=== PATIENT | male | born 1960 | race Caucasian/White ===

== ENCOUNTER 2018-09-30 08:45 | Inpatient (IN) ==
[2018-09-30 10:10] LABS: BASO# 0.01 X1000 (0.0-0.2); BASO% 0.1 % (0.0-0.8); EOS# 0.01 X1000 (0.0-0.7); EOS% 0.1 % (0.0-10.0); HEMATOCRIT 30.2 % (42.0-52.0); HEMOGLOBIN 9.1 g/dL (14.0-18.0); IMM GRAN# 0.02 X1000 (0.0-0.04); IMM GRAN% 0.3 % (0.0-0.5); LYMPH# 1.02 X1000 (1.2-3.4); LYMPH% 13.1 % (20.5-51.1); MCH 19.6 PG (27-31); MCHC 30.1 g/dL (33-37); MCV 64.9 FL (81-99); MONO# 1.01 X1000 (0.11-0.59); MPV 9.9 FL (7.4-10.4); NEUT# 5.71 X1000 (1.4-6.5); NEUT% 73.4 % (42.2-75.2); PLT 318 X1000 (130-400); RBC 4.65 XMIL (4.7-6.1); RDW 19.4 % (11.5-14.5); WBC 7.78 X1000 (4.8-10.8)
[2018-09-30] MEDS ORDERED: ZOFRAN ONE ×2 (10:12→14:46)
[2018-09-30] MEDS ORDERED: ZOFRAN IV ONE (10:14)
[2018-09-30 10:26] LABS: ESTIMATED GFR > 60
[2018-09-30] MEDS ORDERED: NS 1,000 ML ONE (10:27)
[2018-09-30 10:28] LABS: AGAP 18; ALBUMIN 4.2 g/dL (3.5-5.0); ALKALINE PHOSPHATASE 68 U/L (32-122); BUN 40 mg/dL (8-22); CALCIUM 7.8 mg/dL (8.8-10.2); CHLORIDE 75 mmol/L (98-107); COSMO 255; CREATININE 1.1 mg/dL (0.7-1.2); GLUCOSE 150 mg/dL (70-104); GOT 22 U/L (10-34); GPT 16 U/L (10-44); LIPASE 27 U/L (13-60); POTASSIUM 3.7 mmol/L (3.5-5.1); TCO2 27 mmol/L (25-35)
[2018-09-30] MEDS ORDERED: NS 1,000 ML IV ONE (10:29)
[2018-09-30 10:46] LABS: SODIUM 120 mmol/L (136-145)
--- NOTE | 2018-09-30 11:03 | Diag Imaging Result Doc PS360 ---
EXAM: CT ABD/PELVIS W/IV CONT ONLY 09/30/2018 HISTORY: PAIN TECHNIQUE: This exam was performed using automated exposure control, adjustment of mA or kV according to patient size, and/or use of iterative reconstruction technique. COMMENT: There are no previous studies available for comparison. There is atelectasis or fibrosis in the right lower lobe. There is fluid in the subphrenic space on the right. The stomach is not distended. There is a large amount of fluid present in the colon and small bowel. There is a transitional zone in the descending colon just below the splenic flexure. The remainder of the left colon is decompressed. There is a small amount of free fluid in the pelvis. The abdominal aorta is not distended. There are some atherosclerotic calcifications but the mesenteric and renal arteries are patent. There are granulomata in the liver and spleen. There are some very tiny lucencies present in the liver which may represent congenital cysts. The largest of these is located near the falciform ligament in the left hepatic lobe measuring less than 7 mm in diameter. There are no gallstones. The pancreas is unremarkable in appearance. The adrenal glands are not enlarged. There is no evidence of hydronephrosis or stones in the kidneys. There is a cyst in the lower pole of the left kidney measuring less than 17 mm. There is no evidence of significant adenopathy. Pelvis: In addition to the above findings, the urinary bladder is not distended. There is some gas and fecal debris in the rectum. There is no evidence of significant adenopathy. There is a bone island in the right intertrochanteric region. There is no evidence of acute bony abnormality. IMPRESSION: Stenotic lesion in the upper descending colon. No significant mass effect or paracolic inflammatory changes are demonstrated. The possibility of a neoplastic stricture cannot be excluded however. Mild ascites. Right lower lobe atelectasis. Electronically signed by Julian Rodriguez 09/30/2018 11:01 AM
--- NOTE | 2018-09-30 12:14 | Diag Imaging Result Doc PS360 ---
EXAM: CHEST-PORTABLE 09/30/2018 HISTORY: ng tube placement verification TECHNIQUE: AP portable at 1154 COMMENT: The NG tube tip is apparently passes into the area of the hiatus. This may be at the esophagogastric junction. IMPRESSION: NG tube at the esophagogastric junction. Electronically signed by Julian Rodriguez 09/30/2018 12:12 PM
--- NOTE | 2018-09-30 12:30 | PROVIDER DOCUMENTATION ---
This chart was entered by Deborah Hughes Scribe, acting as scribe for Nnamdi Blanco DO. HPI-Abdominal Pain/GI Problem - General Chief Complaint: Abdominal Pain Stated Complaint: VOMITTING Time Seen by Provider: 09/30/18 09:09 Source: patient Allergies/Adverse Reactions: Patient Allergies Allergy/AdvReac Type Severity Reaction Status Date / Time Penicillins Allergy Unknown Verified 09/30/18 09:05 - History of Present Illness-ABD Nature of Presenting Problems: 58 y/o male presents to the ED with complaint of abdominal pain, nausea, vomiting, and diarrhea since Tuesday with increased abdominal swelling as well as not being able to eat or drink today. The patient states he is in fairly good health normally and is on no daily medication. Abdominal Pain Onset Location: reports: generalized abdomen Pain Radiation: reports: no radiation Quality of Pain: reports: fullness Onset/Duration: reports: other (Tuesday) Timing: reports: still present Modifying Factors: worse with: eating Associated Symptoms: reports: diarrhea, nausea, vomiting. denies: fever/chills Similar Symptoms Previously?: No Recently seen or treated by another doctor?: No Review of Systems - Adult - REVIEW OF SYSTEMS - ADULT Constitutional: denies: chills, fever, night sweats Eyes: reports: no symptoms reported Ears, Nose, Mouth & Throat: reports: no symptoms reported Cardiovascular: reports: no symptoms reported Respiratory: reports: no symptoms reported Gastrointestinal: reports: see HPI, abdominal pain, diarrhea, nausea, vomiting Genitourinary: denies: dysuria, discharge, frequency, hematuria, urgency Musculoskeletal: reports: no symptoms reported Integumentary: reports: no symptoms reported Neurological: reports: no symptoms reported Psychiatric: reports: no symptoms reported Endocrine: reports: no symptoms reported Hematologic/Lymphatic: reports: no symptoms reported Allergic/Immunologic: reports: no symptoms reported All Other Systems: Reviewed and Negative Past History - Adult - PAST MEDICAL HISTORY-ADULT Review of Records: reports: Old Records Reviewed, Nursing Assessment Review, Medications Reviewed - IMMUNIZATION STATUS Childhood Immunizations: See Nurse Assessment Flu Vaccine: See Nurse Assessment - SOCIAL HISTORY Smoking: less than 1 pack/day Provider spent 3-5 mins advising pt. on dangers of tobacco.: Discussed manners to quit use, and f/u contacts for add'l counseling. Substance Use: alcohol (3-4 drinks weekly) Physical Exam-General - PHYSICAL EXAM-ADULT Initial Vital Signs Reviewed: Yes - CONSTITUTIONAL General Appearance: alert - EYES Eyes: PERRL/EOMI - HEAD, EARS, NOSE, MOUTH & THROAT HENMT: normocephalic/atraumatic, moist mucous membranes, maxillary tenderness, other (uvula midline, poor dental hygeine/dentation) - NECK Neck: limited range of motion, other (mild degenerative changes C-spine). negative: C-spine tenderness, lymphadenopathy - RESPIRATORY Respiratory: lungs clear, normal breath sounds, other (ribs nontender to compression). negative: rales, rhonchi, wheezing, crepitus - CARDIOVASCULAR Cardiovascular: regular rate, rhythm, no edema, no gallop, no JVD, no murmur - GASTROINTESTINAL (ABDOMEN) Abdominal Exam: abnormal bowel sounds (absent in all four quadrants), distended (fairly hard), guarding (mild), rebound (mild) - MUSCULOSKELETAL Back Exam: other (L4-5 and L5-S1 tenderrness and paraspinous fullness). negative: decreased range of motion Extremity: normal range of motion, no pedal edema, no calf tenderness, other (negative Homans sign). negative: tenderness - SKIN Integumentary: normal color, warm/dry - NEUROLOGIC Neurologic: grossly normal - PSYCHIATRIC Psych/Mental Status: oriented x 3 Progress - PLAN OF CARE/RESULTS Progress/Plan/Lab Results: Vital Signs - 8 hr 09/30/18 09:03 Temperature 97.7 F Pulse Rate 104 H Respiratory Rate 18 Blood Pressure 116/80 O2 Sat by Pulse Oximetry 100 Result Diagrams: 09/30/18 09:30 09/30/18 09:30 - REASSESSMENT Reassessment #1 Status: unchanged (ISCUSSED LABS/CTSCAN WITH PATIENT AND FAMILY) - XRAY 1 XRAY Study: Chest (EXAM: CHEST-PORTABLE 09/30/2018 HISTORY: ng tube placement verification TECHNIQUE: AP portable at 1154 COMMENT: The NG tube tip is apparently passes into the area of the hiatus. This may be at the eso phagogastric junction. IMPRESSION: NG tube at the esophagogastric junction. Electronically signed by Julian Rodriguez 09/30/2018 12:12 PM) - CT/MRI 1 CT Study: Abdomen, Pelvis Impression: Abnormal (EXAM: CT ABD/PELVIS W/IV CONT ONLY 09/30/2018 HISTORY: PAIN TECHNIQUE: This exam was performed using automated exposure control, adjustment of mA or kV according to patient size, and/or use of iterative reconstruction technique. COMMENT: There are no previous studies available for comparison. There is atelectasis or fibrosis in the right lower lobe. There is fluid in the subphrenic space on the right. The stomach is not distended. There is a large amount of fluid present in the colon and small bowel. There is a transitional zone in the descending colon just below the splenic flexure. The remainder of the left colon is decompressed. There is a small amount of free fluid in the pelvis. The abdominal aorta is not distended. There are some atherosclerotic calcifications but the mesenteric and renal arteries are patent. There are granulomata in the liver and spleen. There are some very tiny lucencies present in the liver which may represent congenital cysts. The largest of these is located near the falciform ligament in the left hepatic lobe measuring less than 7 mm in diameter. There are no gallstones. The pancreas is unremarkable in appearance. The adrenal glands are not enlarged. There is no evidence of hydronephrosis or stones in the kidneys. There is a cyst in the lower pole of the left kidney measuring less than 17 mm. There is no evidence of significant adenopathy. Pelvis: In addition to the above findings, the urinary bladder is not distended. There is some gas and fecal debris in the rectum. There is no evidence of significant adenopathy. There is a bone island in the right intertrochanteric region. There is no evidence of acute bony abnormality. IMPRESSION: Stenotic lesion in the upper descending colon. No significant mass effect or paracolic inflammatory changes are demonstrated. The possibility of a neoplastic stricture cannot be excluded however. Mild ascites. Right lower lobe atelectasis. Electronically signed by Julian Rodriguez 09/30/2018 11:01 AM) - CONSULTS/PCP/HOSPITALIST Notification #1 *Consult/PCP/Hospitalist*: Dr. Nuñez, Hospitalist Time Discussed: 12:01 Reason/Comments: cecal mass Consult Disposition: Will see in ED, Admit (Admit to [facility]) Departure - Departure Date of Disposition Decision: 09/30/18 Time of Disposition Decision: 12:20 DIAGNOSIS: Bowel obstruction, Tobacco abuse disorder, Hyponatremia Disposition: ADMITTED INPATIENT 09 Certified Medical Emergency: Emergent Condition: Stable Referrals and Follow-Ups: None,PCP [Primary Care Provider] - Discharge Education: Steps to Quit Smoking - Critical Care Note This patient required my direct & personal management of CC.: No Attestation - Physician/ [place] Attestation Patient care was provided by Advanced Practice Provider:: No The physician spent face to face time with patient:: Yes Advanced Practice Provider documentation review:: Supervising physician onsite and consulted in the evaluation and care of this patient. The physician did have a face to face encounter with the patient. This chart was documented by the indicated scribe, (Deborah Hughes, Emily) and accurately reflects the services I performed and decisions made by me, Nnamdi Blanco DO, as attested by the provider's signature.
[2018-09-30] MEDS ORDERED: NS 1,000 ML IV SCH ×2 (13:00→17:16)
[2018-09-30] MEDS ORDERED: DUONEB (A & A) INH PRN (13:05)
--- NOTE | 2018-09-30 13:31 | HISTORY AND PHYSICAL ---
This is a 58-year-old male who comes in for treatment. He has been complaining of abdominal pain and nausea, vomiting. 58-year-old male no medical problems. I do not think he takes any regular medications. He had no major issues. His workup in the ER showed a colonic mass, but he reports pain in his lower quadrants, abdominal distention for the last week, poor p.o. intake. Pain is described as sharp, 9/10. Also, some intermittent cramping pain, but it has been persistent. He has not really been able to take much by mouth. He does have chronic constipation, but he said he had a normal bowel movement as of this morning. No black bowel movements. No bloody bowel movements. He has had weight loss. Family reports about 5 pounds in the last week. No fevers, chills. No night sweats. No hematemesis. No coffee-grounds emesis. He says he has had some intermittent bleeding in the past, rectal bleeding, but it has been associated with hemorrhoids. Workup in the ER showed a stenotic lesion in the area of his descending colon, upper portion of his descending colon consistent with likely a malignancy. Dr. Hernández was consulted and he was transferred. He will be transferred to [facility] for evaluation for endoscopy, biopsy and possible surgery. He currently has an NG tube in place. The patient is admitted for colon obstruction. PAST MEDICAL HISTORY: Denies. PAST SURGICAL HISTORY: He has had a skin cancer removed from his back. No other major history. SOCIAL HISTORY: He smokes about half a pack a week, but he smoked up to a pack a day. He has smoked since he was 15 so about probably a 40 pack year history of smoking. Alcohol, he drinks about 4 to 5 beers a week. He is disabled. ALLERGIES: To penicillin. MEDICATIONS: Denies. REVIEW OF SYSTEMS: Weight loss as described. Otherwise negative x10 point review of system. No chest pain. No palpitations. No dysuria. No urinary retention. No rashes. No lymphadenopathy. FAMILY HISTORY: Positive for prostate cancer in his father and a sister of metastatic gastric cancer. PHYSICAL EXAMINATION: VITAL SIGNS: Blood pressure is 116/80, heart rate of 104, respiratory rate 18, temperature 97.7 degrees. GENERAL: Well-developed male appears older than stated age. HEENT: Head exam was normocephalic, atraumatic. Eye exam pupils equal, round, reactive to light. Extraocular movements were intact. Sclerae are anicteric. NECK: Supple. CARDIOVASCULAR: Regular rate and rhythm. PULMONARY: Bilateral breath sounds with occasional rhonchi. No wheezing. GI: Was soft, distended. No guarding. No rebound. Bowel sounds I could not appreciate, they were hypoactive. NEURO: Exam was nonfocal. MUSCULOSKELETAL: Exam was 5/5 in all 4 extremities. His right proximal extremity was a bit weak to rotation of his hip. SKIN: Exam was intact. He did have a couple areas of seborrheic keratoses anterior chest. LAB DATA: White count 7, hemoglobin and hematocrit is 9 and 30 with an MCV of 64, platelets of 318,000. Sodium was 120, BUN of 40. ASSESSMENT: This is a 58-year-old male with no major medical history, except his tobacco abuse, who presents with a colonic lesion and obstruction, large bowel obstruction essentially with concern over underlying malignancy. 1. Colon obstruction. He has an NG in place, we are making him n.p.o. We will continue IV fluids but we will have to be careful because of his hyponatremia. So, in any case, he seems to be doing better, but he will need endoscopy. I have discussed with Dr. Arenas and Dr. Arenas has discussed with Dr. Hernández, so we will continue supportive treatment. We will check a CEA level and follow. 2. Hyponatremia possibly related to poor p.o. intake. I am not sure if it is going to be related to alcohol use either but will continue to monitor. Check urine electrolytes and follow closely. 3. Anemia, microcytic, which is most likely iron deficiency, most likely related to the colonic lesion and we will continue to follow closely. We will pursue workup, iron studies and follow. 4. Tobacco abuse. Advised on cessation. He has already cut back significantly. We will work on that while he is here. DISPOSITION: Pending his clinical status at this point, too early to say. We are working on transferring over to [facility] for further management. This is a service admission. Dr hernández has evaluated the patient and will proceed with resection and colostomy today; pt also likely has chronic alcohol abuse and will need to watch closely for withdrawal, beer potomonia may be the source of hyponatremia. cc: Uzair Nuñez MD [facility]
[2018-09-30] MEDS ORDERED: ALBUMIN 25% ONE (13:43)
[2018-09-30] MEDS ORDERED: XYLOCAINE-MPF 2% ONE (13:58)
[2018-09-30] MEDS ORDERED: NORCURON ONE (13:58)
[2018-09-30] MEDS ORDERED: QUELICIN (DOSE) ONE (13:58)
[2018-09-30] MEDS ORDERED: DIPRIVAN 1% ONE (13:58)
[2018-09-30] MEDS ORDERED: LEVAQUIN 500 MG/D5W 500 MG/100 ML IVPB ONE (14:13)
[2018-09-30] MEDS ORDERED: OFIRMEV 1000 MG/ISOTONIC SOLN 1,000 MG/100 ML BOTTLE ONE (14:27)
[2018-09-30] MEDS ORDERED: NEO-SYNEPHRINE ONE (15:00)
[2018-09-30] MEDS ORDERED: FLAGYL 500 MG/NS 500 MG/100 ML IVPB IV ONE (15:00)
[2018-09-30] MEDS ORDERED: ROBINUL ONE (15:08)
[2018-09-30] MEDS ORDERED: NEOSTIGMINE ONE (15:09)
[2018-09-30 15:11] LABS: URINE SOURCE CATH
[2018-09-30 15:19] LABS: BILIRUBIN URINE NEGATIVE (NEGATIVE); BLOOD URINE NEGATIVE (NEGATIVE); COLOR YELLOW; GLUCOSE URINE NEGATIVE (NEGATIVE); KETONE URINE NEGATIVE (NEGATIVE); LEUKOCYTES URINE NEGATIVE (NEGATIVE); NITRITE URINE NEGATIVE (NEGATIVE); PROTEIN URINE TRACE mg/dL (NEGATIVE); SP GRAVITY URINE > 1.050; TURBIDITY URINE CLEAR (CLEAR); UROBILINOGEN URINE NORMAL (NORMAL)
[2018-09-30 15:20] LABS: UR EPITHELIAL CELLS <10 /HPF (<10); URINE BACTERIA NEGATIVE /HPF; URINE RBC <10 /HPF (<10); URINE WBC <10 /HPF (<10)
[2018-09-30] MEDS: DILAUDID ONE ×3 (16:15→19:41)
[2018-09-30] MEDS ORDERED: DILAUDID PCA VIAL IV PRN (16:30)
[2018-09-30] MEDS ORDERED: ZOFRAN IV PRN ×2 (16:30→17:16)
[2018-09-30] MEDS ORDERED: LR 1,000 ML IV SCH (16:30)
[2018-09-30] MEDS ORDERED: NARCAN IV PRN (16:30)
[2018-09-30] MEDS ORDERED: NARCAN 0.4 MG in LR 1,000 ML IV PRN (16:30)
[2018-09-30] MEDS: NS 1,000 ML ONE ×2 (16:32→19:41)
--- NOTE | 2018-09-30 16:36 | GENERAL SURGERY CONSULTATION ---
DATE: 09/30/2018 CHIEF COMPLAINT: Is colonic obstruction. HISTORY: This is a 58-year-old white male who has had crampy abdominal pain, nausea, vomiting over the past 4 or 5 days. He denies any other medical illnesses. He does not have a regular physician. He takes no scheduled medications. He has had a change in his bowel habits. He does smoke a 3rd of a pack a day. ALLERGIES: He has an allergy to penicillin. He has had a skin cancer removed from his back. SOCIAL HISTORY: Lives with his mother. He does smoke a 3rd of a pack a day. He does drink alcohol regularly. His sister consider an alcoholic. REVIEW OF SYSTEMS: As noted above. PHYSICAL EXAMINATION: Vital Signs: He is afebrile. Heart rate 104, blood pressure 116/80, respiratory rate is 18. He has no cervical adenopathy. Lungs: Sound clear. Heart: Regular rate and rhythm. Abdomen: Not particularly distended, is nontender. Bowel sounds are hypoactive. He does have pedal pulses, posterior tibial pulses bilaterally. There is no peripheral edema. He is awake, alert, and oriented. DATA: CT scan is reviewed. He has a strictured area in the left colon with obstruction consistent with cancer. Due to his colonic obstruction, will take him to the operating room for resection and an end colostomy. I have discussed this with him. He understands and wants to proceed. cc: Evaristo Hare MD
[2018-09-30] MEDS ORDERED: ATIVAN IV PRN (17:16)
[2018-09-30] MEDS ORDERED: NICODERM PATCH TD PRN (17:16)
[2018-09-30 18:46] LABS: AGAP 12; BUN 37 mg/dL (8-22); CHLORIDE 87 mmol/L (98-107); COSMO 256; CREATININE 0.9 mg/dL (0.7-1.2); ESTIMATED GFR > 60; GLUCOSE 132 mg/dL (70-104); POTASSIUM 3.3 mmol/L (3.5-5.1); SODIUM 122 mmol/L (136-145); TCO2 23 mmol/L (25-35)
--- NOTE | 2018-09-30 18:55 | OPERATIVE NOTE ---
PROCEDURE DATE: 09/30/2018 OPERATION: 1. Resection of a portion of the descending colon at the splenic flexure. 2. Construction of end-colostomy in Kala's pouch. SURGEON: Evaristo Hare MD. ANIMAL CARE GIVER: Nishant. PREOPERATIVE DIAGNOSIS: Colonic obstruction. POSTOPERATIVE DIAGNOSIS: Colonic obstruction at the proximal descending colon at the splenic flexure. DESCRIPTION OF PROCEDURE: Satisfactory general endotracheal anesthesia was achieved. The abdomen was prepped and draped in a sterile fashion. A midline incision was made and carried our incision through the subcutaneous tissue through the midline fascia, entering the abdominal cavity. Upon entering the abdominal cavity, dilated small bowel was noted. Dilated colon was noted. No masses palpated at the splenic flexure. We incised the white line of Toldt starting at the sigmoid and going cephalad to the splenic flexure. After reaching the splenic flexure with the electrocautery, we then turned our attention to the greater curve and into the lesser sac with the LigaSure. We then took the greater omentum off the colon toward the splenic flexure. We mobilized the splenic flexure and brought it out of the retroperitoneum. We then chose a spot in the distal transverse colon and used a LOKESH-80 to staple and divide the distal transverse colon. We then divided the mesentery with the LigaSure. We divided the distal descending colon also with a LOKESH-80 blue cartridge and again divided the mesentery with the LigaSure. We handed off the specimen. The distal colon was marked by using 2-0 Prolene at the end of the staple line for future identification. We looked at the spleen and it was hemostatic. The retroperitoneum was hemostatic. We then chose a place in the left upper quadrant to bring the stoma out. We palpated the rest of the colon. Did not palpate any other masses. No masses were palpated within the liver. We used a Emmy on the fascia and then marked the skin in the left upper quadrant. We used a Emmy to grab the skin and made a small hole in the skin removing it. We then dissected to the anterior rectus sheath and divided it longitudinally and transversely. We spread the muscle and opened the posterior rectus sheath as well longitudinally and transversely. We then introduced a small wound protector, delivered the colon through the small wound protector without difficulty. We then cut the small wound protector, and removed it. We then sutured the colon to the fascia with 3-0 Polysorb simple stitches. I then proceeded to close the peritoneum with a running 2-0 chromic. We closed the fascia with a running #2 Prolene. Irrigated the subcutaneous tissue and closed the skin with loan. We covered the midline wound. We then cleaned off the skin, used benzoin followed by a flange that would go around the stoma, while the midline wound was covered, we excised the staple line of the stoma and matured the stoma with 3-0 Polysorb stitches, everting it as a co-colostomy. The bag was then applied over the stoma. Sterile dressings were applied to midline wound. He tolerated procedure satisfactory. Was sent to recovery room in satisfactory condition. cc: Evaristo Hare MD
--- NOTE | 2018-09-30 20:39 | PROGRESS NOTE ---
DATE: 09/30/2018 Dr. Nuñez actually saw him today, admitted in transfer here in the hospital. A 58-year-old male coming in for treatment complaint of abdominal pain, nausea and vomiting. Workup in the ER showed colonic mass, pain in his left lower quadrant and having chronic constipation. Was sent over here, by report apparently had a colon mass and was resected per Dr. Hare resection of portion of descending colon and splenic flexure, construction of end colostomy and Kala pouch. He is awake and alert and comfortable at this point. I have reviewed his lab and orders. I do not see any change. I will be following him along. cc: Maksim Parham MD
[2018-09-30] MEDS: PROTONIX IV SCH (21:14)
[2018-09-30] MEDS: POTASSIUM CHLORIDE 20 MEQ, MAGNESIUM SULFATE 2 GM, THIAMINE 100 MG, FOLIC ACID 1 MG, M.... IV SCH ×6 (21:14)
[2018-09-30] MEDS: LOVENOX SUBQ SCH (21:14)
[2018-09-30 23:57] LABS: AGAP 15; BUN 37 mg/dL (8-22); CHLORIDE 88 mmol/L (98-107); COSMO 264; CREATININE 1.1 mg/dL (0.7-1.2); ESTIMATED GFR > 60; GLUCOSE 131 mg/dL (70-104); POTASSIUM 3.8 mmol/L (3.5-5.1); SODIUM 126 mmol/L (136-145); TCO2 23 mmol/L (25-35)
[2018-09-30 23:58] LABS: CALCIUM 5.9 mg/dL (8.8-10.2)
[2018-10-01] MEDS: PERIDEX MT SCH ×3 (00:07→21:42)
[2018-10-01] MEDS ORDERED: CALCIUM GLUCONATE 2 GM in NS 100 ML IV ONE (01:26)
[2018-10-01 02:20] LABS: AGAP 12; BUN 38 mg/dL (8-22); CHLORIDE 87 mmol/L (98-107); COSMO 257; CREATININE 1.1 mg/dL (0.7-1.2); ESTIMATED GFR > 60; GLUCOSE 161 mg/dL (70-104); POTASSIUM 3.7 mmol/L (3.5-5.1); SODIUM 121 mmol/L (136-145); TCO2 22 mmol/L (25-35)
[2018-10-01 02:25] LABS: CALCIUM 6.4 mg/dL (8.8-10.2)
--- NOTE | 2018-10-01 06:25 | PROGRESS NOTE ---
DATE: 10/01/2018 SUBJECTIVE: Mr. Yuan did not sleep much last night. The lights were on. It is about 5:00 this morning. His family was sleeping in the room. He was thankful to have a little ice. He is not in any pain, he is not sleepy at this point. He does have some abdominal pain, but it seems to be fairly well controlled. OBJECTIVE: Vital signs: Temp 97.8 degrees, pulse 100, respirations 20, blood pressure 109/70. HEENT: Pupils are equal. Neck: No distended neck veins. Lungs: Clear in all lung schaefer. Cardiovascular: Regular rhythm and rate without murmur or S3. Abdomen: Soft. Skin: Warm and dry. LABORATORY DATA: White blood cell count 7780, hematocrit 30, hemoglobin 9.1, platelet count 318,000. Sodium 121, potassium 3.7, chloride 97, BUN 38, and creatinine 1.1. His calcium was 6.4 with an albumin of 4.2, so I am going to give him some calcium. We will check his magnesium as well later this afternoon. ASSESSMENT AND PLAN: 1. Hyponatremia. I am going to supplement with some IV potassium and give him a little bit of calcium as well. We will check his electrolytes again this afternoon. He is on normal saline. I am going to change him to normal saline with some potassium. 2. Status post postoperative day 1 of surgery of colon mass, I think was at the splenic flexure with an end colostomy and Kala's pouch. 3. Anemia, microcytic, iron deficient, acute blood loss anemia. We will watch his blood counts, and they look good. Hematocrit was 30 yesterday, and hemoglobin was 9.1, and we will check again today. I do not see any other changes at this point. cc: Maksim Parham MD MTDD
[2018-10-01] MEDS: POTASSIUM CHLORIDE 20 MEQ/SWI 20 MEQ/100 ML IVPB IV SCH ×3 (06:58→09:59)
[2018-10-01 07:00] LABS: BASO# 0.02 X1000 (0.0-0.2); BASO% 0.2 % (0.0-0.8); EOS# 0.01 X1000 (0.0-0.7); EOS% 0.1 % (0.0-10.0); HEMATOCRIT 25.6 % (42.0-52.0); HEMOGLOBIN 7.4 g/dL (14.0-18.0); IMM GRAN# 0.05 X1000 (0.0-0.04); IMM GRAN% 0.4 % (0.0-0.5); LYMPH# 0.81 X1000 (1.2-3.4); LYMPH% 6.4 % (20.5-51.1); MCH 19.4 PG (27-31); MCHC 28.9 g/dL (33-37); MONO# 1.07 X1000 (0.11-0.59); MONO% 8.5 % (1.7-9.3); MPV 9.6 FL (7.4-10.4); NEUT% 84.4 % (42.2-75.2); PLT 236 X1000 (130-400); RBC 3.82 XMIL (4.7-6.1); RDW 19.3 % (11.5-14.5); WBC 12.66 X1000 (4.8-10.8)
[2018-10-01 07:24] LABS: ESTIMATED GFR > 60; IRON SATURATION 6 %; TIBC 271 ug/dL
[2018-10-01 07:40] LABS: FERRITIN 23 ng/mL (30-400)
[2018-10-01 07:53] LABS: SODIUM 120 mmol/L (136-145)
[2018-10-01 07:54] LABS: AGAP 12; ALBUMIN 2.9 g/dL (3.5-5.0); ALKALINE PHOSPHATASE 45 U/L (32-122); BUN 40 mg/dL (8-22); CALCIUM 7.1 mg/dL (8.8-10.2); CHLORIDE 87 mmol/L (98-107); COSMO 256; CREATININE 1.1 mg/dL (0.7-1.2); GLUCOSE 170 mg/dL (70-104); GOT 14 U/L (10-34); GPT 10 U/L (10-44); POTASSIUM 4.2 mmol/L (3.5-5.1); TCO2 21 mmol/L (25-35); TOTAL BILIRUBIN 0.37 mg/dL (0.20-1.00); TOTAL IRON 17 ug/dL (53-167); TOTAL PROTEIN 5.9 g/dL (6.3-8.3); UNBOUND IRON 254 ug/dL (112-346)
[2018-10-01] MEDS ORDERED: NS 1,000 ML IV SCH (08:44)
--- NOTE | 2018-10-01 09:35 | GENERAL SURGERY PROGRESS NOTE ---
DATE: 10/01/2018 Mr. Yuan is postoperative day 1 after a colon resection with end colostomy. He feels better today. He is afebrile, heart rate 94, blood pressure 133/76. He has had quite a bit of output in his colostomy due to the previous colonic obstruction. His urine output has been marginal. DIAGNOSTIC STUDIES: White count is 12,700, hemoglobin 7.4, hematocrit 25.6. Sodium 121, potassium 3.7, chloride 87, carbon dioxide 22, BUN 38, creatinine 1.1. PLAN: The plan today is to increase his IV fluids. He will need some potassium supplement. We will keep his NG tube today, but hopefully get it out by tomorrow. cc: Evaristo Hare MD
[2018-10-01] MEDS ORDERED: CALCIUM GLUCONATE IV PUSH ONE (10:03)
[2018-10-01] MEDS: NS + KCL 40 MEQ 1,000 ML IV SCH ×2 (13:45)
[2018-10-01] MEDS: CALCIUM GLUCONATE 2 GM in NS 100 ML IV ONE ×2 (13:45)
[2018-10-01 16:51] LABS: AGAP 10; BUN 33 mg/dL (8-22); CALCIUM 7.5 mg/dL (8.8-10.2); CHLORIDE 88 mmol/L (98-107); COSMO 246; CREATININE 1.2 mg/dL (0.7-1.2); ESTIMATED GFR > 60; GLUCOSE 111 mg/dL (70-104); POTASSIUM 4.5 mmol/L (3.5-5.1); TCO2 20 mmol/L (25-35)
[2018-10-01 16:57] LABS: SODIUM 119 mmol/L (136-145)
[2018-10-01 18:54] LABS: UR CREAT RANDOM 77.3 mg/dL (14-26); UR SODIUM < 10 mmoll
[2018-10-01] MEDS: LOVENOX SUBQ SCH (21:42)
[2018-10-01] MEDS: POTASSIUM CHLORIDE 20 MEQ, MAGNESIUM SULFATE 2 GM, THIAMINE 100 MG, FOLIC ACID 1 MG, M.... IV SCH ×6 (21:42)
[2018-10-01] MEDS: PROTONIX IV SCH (21:42)
[2018-10-01] MEDS: SODIUM CHLORIDE 0.9% INJ SCH (21:42)
[2018-10-02] MEDS: NS + KCL 40 MEQ 1,000 ML IV SCH (05:40)
[2018-10-02 07:36] LABS: ESTIMATED GFR > 60
[2018-10-02 07:42] LABS: AGAP 6; BUN 22 mg/dL (8-22); CALCIUM 7.1 mg/dL (8.8-10.2); CHLORIDE 93 mmol/L (98-107); COSMO 247; CREATININE 0.7 mg/dL (0.7-1.2); GLUCOSE 116 mg/dL (70-104); SODIUM 121 mmol/L (136-145); TCO2 21 mmol/L (25-35)
[2018-10-02 08:30] LABS: EOS# 0.01 X1000 (0.0-0.7); EOS% 0.1 % (0.0-10.0); HEMATOCRIT 19.4 % (42.0-52.0); HEMOGLOBIN 5.6 g/dL (14.0-18.0); IMM GRAN# 0.03 X1000 (0.0-0.04); IMM GRAN% 0.4 % (0.0-0.5); LYMPH# 0.84 X1000 (1.2-3.4); LYMPH% 12.1 % (20.5-51.1); MCH 19.3 PG (27-31); MCHC 28.9 g/dL (33-37); MCV 66.9 FL (81-99); MONO# 0.86 X1000 (0.11-0.59); MONO% 12.4 % (1.7-9.3); MPV 9.6 FL (7.4-10.4); NEUT# 5.22 X1000 (1.4-6.5); PLT 198 X1000 (130-400); WBC 6.96 X1000 (4.8-10.8)
[2018-10-02] MEDS ORDERED: NS 500 ML ONE (12:09)
[2018-10-02] MEDS: PERIDEX MT SCH ×2 (12:17→19:49)
--- NOTE | 2018-10-02 13:11 | PROGRESS NOTE ---
DATE: 10/02/2018 SUBJECTIVE: Mr. Yuan is feeling pretty good. He had a better night. Noticed his hemoglobin is under 5.6, hematocrit 19. He is pretty pale. He is breathing comfortably. OBJECTIVE: Vitals: Temperature 98.7 degrees, pulse 80, respirations 18, blood pressure 114/61. HEENT: Pupils are equal and round. Lungs: Clear in all lung schaefer. Cardiovascular: Regular rhythm and rate without murmur or S3. Abdomen: Soft. Skin: Warm and dry. LABORATORY STUDIES: Urine output is 2700 mL. ASSESSMENT AND PLAN: 1. Hyponatremia. Continue to give him fluids. It did come up a little bit from yesterday from 119. We will give him 2 units of blood as well. He appears probably third spacing, appears to be hypovolemic, hyponatremia, so continue present fluids. 2. Acute blood loss anemia and with hydration giving more volume or diluting his red blood cell count, so we will give him 2 units of packed red blood cells today. 3. Day 2 of status post surgery for removal of colon mass at the splenic flexure and end- colostomy with Kala's pouch. 4. Nutrition. Of course will advance his nutrition as he is able and I think that continue his present fluids and I think he would probably benefit from some Clinimix as well so I will put him on Clinimix at 70 mL an hour. cc: Maksim Parham MD
[2018-10-02] MEDS: CLINIMIX E 4.25%-5% SOLUTION 1,000 ML IV SCH (14:27)
--- NOTE | 2018-10-02 16:58 | GENERAL SURGERY PROGRESS NOTE ---
DATE: 10/02/2018 SUBJECTIVE: Mr. Yuan is doing generally well. He is putting out quite a bit out of his colostomy. He is afebrile. Hemodynamics are good. His hemoglobin has drifted down to 5.6, with hematocrit 19 today, so 2 units of blood have being given. His BUN is down to 22, creatinine down to 0.7, so he is better hydrated. He says he feels better as well. PLAN: The plan will be to start him on clear liquids. We will recheck his labs tomorrow. We will get his Bundy out today. Sincerely yours, cc: Evaristo Hare MD
[2018-10-02] MEDS: POTASSIUM CHLORIDE 20 MEQ, MAGNESIUM SULFATE 2 GM, THIAMINE 100 MG, FOLIC ACID 1 MG, M.... IV SCH ×6 (19:48)
[2018-10-02] MEDS: SODIUM CHLORIDE 0.9% INJ SCH (19:49)
[2018-10-02] MEDS: PROTONIX IV SCH (19:49)
[2018-10-02] MEDS: LOVENOX SUBQ SCH (19:49)
[2018-10-03] MEDS: PROTONIX IV SCH ×3 (00:04→20:05)
[2018-10-03] MEDS: LOVENOX SUBQ SCH ×3 (00:04→20:05)
[2018-10-03] MEDS: PERIDEX MT SCH ×4 (00:04→20:05)
[2018-10-03] MEDS: NS + KCL 40 MEQ 1,000 ML IV SCH ×4 (00:04→09:50)
[2018-10-03] MEDS: CLINIMIX E 4.25%-5% SOLUTION 1,000 ML IV SCH (06:12)
[2018-10-03 07:21] LABS: BASO# 0.01 X1000 (0.0-0.2); BASO% 0.1 % (0.0-0.8); EOS# 0.04 X1000 (0.0-0.7); EOS% 0.5 % (0.0-10.0); HEMATOCRIT 28.8 % (42.0-52.0); HEMOGLOBIN 9.1 g/dL (14.0-18.0); IMM GRAN# 0.05 X1000 (0.0-0.04); IMM GRAN% 0.7 % (0.0-0.5); LYMPH# 0.95 X1000 (1.2-3.4); LYMPH% 12.5 % (20.5-51.1); MCH 22.9 PG (27-31); MCHC 31.6 g/dL (33-37); MCV 72.5 FL (81-99); MONO% 7.9 % (1.7-9.3); MPV 9.7 FL (7.4-10.4); NEUT# 5.96 X1000 (1.4-6.5); NEUT% 78.3 % (42.2-75.2); PLT 160 X1000 (130-400); RBC 3.97 XMIL (4.7-6.1); RDW 21.7 % (11.5-14.5); WBC 7.61 X1000 (4.8-10.8)
[2018-10-03 07:45] LABS: AGAP 8; ALBUMIN 2.7 g/dL (3.5-5.0); ALKALINE PHOSPHATASE 42 U/L (32-122); BUN 10 mg/dL (8-22); CALCIUM 7.5 mg/dL (8.8-10.2); CHLORIDE 91 mmol/L (98-107); COSMO 242; CREATININE 0.4 mg/dL (0.7-1.2); ESTIMATED GFR > 60; GLUCOSE 109 mg/dL (70-104); GOT 17 U/L (10-34); GPT 10 U/L (10-44); MAGNESIUM 2.3 mg/dL (1.5-2.7); POTASSIUM 3.6 mmol/L (3.5-5.1); TCO2 21 mmol/L (25-35); TOTAL BILIRUBIN 0.59 mg/dL (0.20-1.00); TOTAL PROTEIN 5.3 g/dL (6.3-8.3)
[2018-10-03 08:24] LABS: SODIUM 121 mmol/L (136-145)
--- NOTE | 2018-10-03 11:00 | PROGRESS NOTE ---
DATE: 10/03/2018 SUBJECTIVE: As per the patient, he is feeling better. His daughter is at the bedside. He received 2 units of blood yesterday, and the hemoglobin improved from 5.6 to 9.1 today. His MCV is low. It has been in the 60s mostly. Also, he has been hyponatremic. He came in with a little bit of acute kidney injury, but now is normal. When I asked the patient about his drinking history, he told me that he probably drinks 1 beer per day and/or maybe 4 to 5 per week and, as per the patient, he smokes half a pack per week of cigarettes as well. Then, the daughter stepped out of the room and talked to me again. She told me that he drinks more than that on a daily basis and also he was drinking vodka before coming to the hospital. She said that he is not smoking half a pack per week. He smokes way more than that. On the other hand, his iron level is low, as well as the ferritin level. I will give him 2 doses of Venofer IV. When he came in he was hyponatremic and probably this is chronic. He is tolerating liquid diet, so I will stop the Clinimix. I will ask the polygraph operator to evaluate this patient. I will decrease also the rate of the normal saline from 100 to 35 mL/hour. He looks euvolemic today. OBJECTIVE: Vital Signs: Temperature 98.4 degrees, pulse 83, respiratory rate 20, blood pressure 128/64, oxygen saturation 97% on 3 L of nasal cannula. HEENT: Head normocephalic, no trauma. PERRLA. Neck: Supple. No JVD. Central trachea. Chest: Clear to auscultation. No wheezing. No rales. Abdomen: Soft. Generalized tenderness to palpation mostly at the level of the left side of the abdomen and around the wound. Decreased bowel sounds. He does have a colostomy bag working on the left side. Extremities: No edema, no clubbing, no cyanosis. Neurological examination: The patient is alert and oriented x3. No focal deficits. LABORATORY: WBC 7.6, hemoglobin 9.1, hematocrit 28.8, platelet 160. Sodium 121, potassium 3.6, chloride 91, bicarbonate 21. BUN 10, creatinine 0.4, glucose 109, calcium 7.5, magnesium 2.3, albumin 2.7. ASSESSMENT AND PLAN: 1. Hyponatremia. This patient came in with hyponatremia and probably this is chronic. As per the daughter, this patient is an alcoholic and he drinks beer on a daily basis. He looks euvolemic for me, so I will stop the Clinimix and I will decrease the rate of the normal saline since this patient is already tolerating liquid diet. I will continue to monitor. He is completely alert and oriented times three. 2. Acute blood loss anemia in a patient with low MCV and iron deficiency anemia. He has been transfused. He receive 2 units of packed red blood cells yesterday, but I will give him also Venofer due to his iron deficiency anemia. 3. Alcohol abuse. As per the daughter, this patient drinks on a daily basis mostly beer. We do not know exactly the amount of alcohol that he drinks because as per the patient he only drinks 4 to 5 beers per week. Also as per the daughter he has been recently drinking vodka. 4. Tobacco abuse. This patient has been highly advised against tobacco use. I will continue with daily cessation education. 5. Status post resection of a portion of the descending colon at the splenic flexure with construction of end colostomy in Kala pouch postoperative day number three. He seems to be doing better. He is tolerating oral. Computed tomography scan showed a stenotic lesion in the upper descending colon with no significant mass or paracolic inflammatory changes. There is a possibility of neoplastic stricture. Pathology report is pending and the CEA level is 23, which is slightly high. 6. Nutritional status: This patient is tolerating liquid diet. I will ask the polygraph operator to evaluate this patient since his body mass index is 17.6, so he has some protein calorie malnutrition. 7. Protein calorie malnutrition, probably mild, as above. cc: Jerman Villatoro MD
[2018-10-03] MEDS: THIAMINE 100 MG in NS 50 ML IV SCH (11:12)
[2018-10-03] MEDS: VENOFER IV SCH (12:22)
[2018-10-03] MEDS: NS IV SCH (12:22)
[2018-10-03 17:26] LABS: AGAP 11; BUN 8 mg/dL (8-22); CALCIUM 7.8 mg/dL (8.8-10.2); CHLORIDE 95 mmol/L (98-107); COSMO 250; CREATININE 0.5 mg/dL (0.7-1.2); ESTIMATED GFR > 60; GLUCOSE 131 mg/dL (70-104); POTASSIUM 3.8 mmol/L (3.5-5.1); SODIUM 124 mmol/L (136-145); TCO2 18 mmol/L (25-35)
[2018-10-03] MEDS: POTASSIUM CHLORIDE 20 MEQ, MAGNESIUM SULFATE 2 GM, THIAMINE 100 MG, FOLIC ACID 1 MG, M.... IV SCH ×6 (19:52)
[2018-10-03] MEDS: SODIUM CHLORIDE 0.9% INJ SCH (19:57)
[2018-10-04] MEDS ORDERED: NS + KCL 40 MEQ 1,000 ML IV SCH (03:00)
--- NOTE | 2018-10-04 06:54 | GENERAL SURGERY PROGRESS NOTE ---
DATE: 10/04/2018 SUBJECTIVE: He is 4 days after a left colectomy and end colostomy for obstructed colon. Mr. simeon has been tolerating liquids. He is putting liquid out his stoma, some air. OBJECTIVE: His abdomen this morning is somewhat distended, but he denies nausea. Vital signs: He is afebrile, blood pressure is 125/77, heart rate 93. ASSESSMENT AND PLAN: The plan today is to advance his diet. He needs to get out of bed. We will stop his VAMPER. His pathology is pending. cc: Evaristo Hare MD
[2018-10-04 06:55] LABS: BASO# 0.01 X1000 (0.0-0.2); BASO% 0.1 % (0.0-0.8); EOS# 0.02 X1000 (0.0-0.7); EOS% 0.2 % (0.0-10.0); HEMATOCRIT 28.5 % (42.0-52.0); IMM GRAN# 0.09 X1000 (0.0-0.04); LYMPH# 0.78 X1000 (1.2-3.4); LYMPH% 8.8 % (20.5-51.1); MCH 22.7 PG (27-31); MCHC 31.6 g/dL (33-37); MONO# 0.89 X1000 (0.11-0.59); MPV 9.6 FL (7.4-10.4); NEUT# 7.08 X1000 (1.4-6.5); NEUT% 79.9 % (42.2-75.2); PLT 178 X1000 (130-400); RBC 3.96 XMIL (4.7-6.1); RDW 22.4 % (11.5-14.5); WBC 8.87 X1000 (4.8-10.8)
[2018-10-04 09:37] LABS: BUN 6 mg/dL (8-22); TCO2 18 mmol/L (25-35)
[2018-10-04 09:55] LABS: CHLORIDE 97 mmol/L (98-107); COSMO 252; CREATININE 0.5 mg/dL (0.7-1.2); ESTIMATED GFR > 60; GLUCOSE 146 mg/dL (70-104); POTASSIUM 3.8 mmol/L (3.5-5.1); SODIUM 125 mmol/L (136-145)
[2018-10-04] MEDS: NORCO-7.5 PO PRN ×2 (09:59→19:59)
[2018-10-04] MEDS: PERIDEX MT SCH ×2 (10:00→21:44)
[2018-10-04 10:01] LABS: AGAP 10
[2018-10-04] MEDS: THIAMINE 100 MG in NS 50 ML IV SCH (10:31)
[2018-10-04] MEDS: NS IV SCH (11:25)
[2018-10-04] MEDS: VENOFER IV SCH (11:25)
[2018-10-04] MEDS: MORPHINE IV PRN ×2 (12:52→21:44)
--- NOTE | 2018-10-04 15:18 | PROGRESS NOTE ---
DATE: 10/04/2018 SUBJECTIVE: The patient seems to be doing better. He is still complaining of abdominal pain, but has been controlled with pain medication. He has been walking a little bit more, tolerating p.o. Hyponatremia seems to be better since I stopped the IV fluids. I will completely stop the normal saline at this time to see how he does. OBJECTIVE: Vital Signs: Temperature 98, pulse 84, respiratory rate 20, blood pressure 127/74. Oxygen saturation 95% on room air. HEENT: Head normocephalic, no trauma. PERRLA. Neck: Supple. No JVD. No masses. Central trachea. Chest: Clear to auscultation. No wheezing. No rales. Abdomen: Soft. Generalized tenderness to palpation mostly at the level of the left side of the abdomen and around the perioperative area. Decreased bowel sounds are present. He does have a colostomy bag on the left side with some liquid stools. Extremities: No edema. No clubbing, no cyanosis. Neurologic: The patient is alert and oriented x 3. No focal deficits. LABORATORY: WBC 8.8, hemoglobin 9, hematocrit 28.5, platelets 178,000. Sodium 125, potassium 3.8, chloride 97, bicarbonate 18, BUN 6, creatinine 0.5, glucose 146, calcium 8. ASSESSMENT AND PLAN: 1. Status post resection of a portion of the ascending colon at the splenic flexure with construction of end colostomy and Kala pouch, postoperative day #4. He seems to be doing better. He is tolerating p.o. CT scan showed a stenotic lesion in the upper descending colon with no significant mass or paracolic inflammatory changes. There is a possibility of neoplastic stricture. Pathology report is pending and the CEA level is 23, which is slightly elevated. Surgery Department on board. We will continue to monitor. 2. Hyponatremia. This patient came in with hyponatremia, which is probably chronic, no mental status changes. Also, this patient is a heavy drinker. He looks euvolemic at this point, I will stop all the IV fluids. Probably there is a component of SIADH on this patient. 3. Acute blood loss anemia, status post 2 PRBC's. We will monitor. Hemoglobin and hematocrit have been stable. 4. Alcohol abuse. This patient has been highly advised against alcohol use. I will continue with daily cessation education. 5. Tobacco abuse. This patient has been highly advised against tobacco use as well. I will continue with daily cessation education. 6. Nutritional status. Continue with his diet. 7. Protein calorie malnutrition, continue with his diet. The diversified crops i farmworker has recommended to use Ensure with meals and his diet. cc: Jerman Villatoro MD
[2018-10-04] MEDS: SODIUM CHLORIDE 0.9% INJ SCH (21:44)
[2018-10-04] MEDS: PROTONIX IV SCH (21:44)
[2018-10-04] MEDS: LOVENOX SUBQ SCH (21:44)
[2018-10-04] MEDS: POTASSIUM CHLORIDE 20 MEQ, MAGNESIUM SULFATE 2 GM, THIAMINE 100 MG, FOLIC ACID 1 MG, M.... IV SCH ×6 (21:44)
[2018-10-05] MEDS: NORCO-7.5 PO PRN ×3 (06:28→22:04)
[2018-10-05 07:19] LABS: BASO# 0.02 X1000 (0.0-0.2); BASO% 0.2 % (0.0-0.8); EOS# 0.02 X1000 (0.0-0.7); EOS% 0.2 % (0.0-10.0); HEMATOCRIT 28.3 % (42.0-52.0); IMM GRAN# 0.11 X1000 (0.0-0.04); LYMPH# 0.86 X1000 (1.2-3.4); LYMPH% 7.7 % (20.5-51.1); MCH 23.1 PG (27-31); MCHC 31.8 g/dL (33-37); MCV 72.8 FL (81-99); MONO% 9.8 % (1.7-9.3); MPV 9.3 FL (7.4-10.4); NEUT# 9.12 X1000 (1.4-6.5); NEUT% 81.1 % (42.2-75.2); PLT 164 X1000 (130-400); RBC 3.89 XMIL (4.7-6.1); RDW 23.7 % (11.5-14.5); WBC 11.23 X1000 (4.8-10.8)
[2018-10-05 07:41] LABS: AGAP 10; BUN 7 mg/dL (8-22); CALCIUM 7.5 mg/dL (8.8-10.2); CHLORIDE 96 mmol/L (98-107); COSMO 249; CREATININE 0.4 mg/dL (0.7-1.2); ESTIMATED GFR > 60; GLUCOSE 128 mg/dL (70-104); POTASSIUM 3.6 mmol/L (3.5-5.1); SODIUM 124 mmol/L (136-145); TCO2 18 mmol/L (25-35)
[2018-10-05] MEDS: PERIDEX MT SCH ×2 (09:44→22:03)
[2018-10-05] MEDS: VITAMIN B-1 PO SCH (09:44)
--- NOTE | 2018-10-05 10:52 | PROGRESS NOTE ---
DATE: 10/05/2018 SUBJECTIVE: As per the patient, he is feeling better but he still complaining of abdominal pain and asking for pain medication. As per the patient, he has been walking a little bit more. He has been tolerating p.o. He is still hyponatremic, but I believe this is chronic. OBJECTIVE: Vital Signs: Temperature 98.8 degrees, pulse 90, respiratory rate 18, blood pressure 105/64, and oxygen saturation 94% on room air. HEENT: Head normocephalic. No trauma. PERRLA. Neck: Supple. No JVD. No masses. Central trachea. Chest: Clear to auscultation. No wheezing. No rales. Abdomen: Soft. Generalized tenderness to palpation mostly at the level of the left side of the abdomen and around the perioperative area. Decreased bowel sounds, and I believe more decreased compared with yesterday. He does have a colostomy bag on the left side of the abdomen with liquid stools. Extremities: No edema. No clubbing. No cyanosis. Neurological: Alert and oriented x3. No focal deficits. LABORATORY: WBC 11.3, hemoglobin 9, hematocrit 28.3, and platelets 164,000. Sodium 124, potassium 3.6, chloride 96, bicarbonate 18, BUN 7, creatinine 0.4, glucose 128, and calcium 7.5. ASSESSMENT AND PLAN: 1. Status post resection of a portion of the ascending colon at the splenic flexure with construction the of end colostomy and Kala pouch, postoperative day #5. He seems to be doing okay. He is tolerating p.o. CT scan before surgery showed a stenotic lesion in the upper descending colon with no significant mass or paracolic inflammatory changes. There is a possibility of neoplastic stricture, though. Pathology report is pending and CEA level is a little bit elevated at 23. Surgery Department on board. Continue to monitor. 2. Hyponatremia. This patient came in with hyponatremia, which is probably chronic. No mental status changes. Apparently, as per the daughter, he is a heavy drinker and smoker. Probably, there is a component of SIADH on this patient. 3. Acute blood loss anemia status post 2 PRBCs. Hemoglobin and hematocrit stable. 4. Alcohol abuse. This patient has been advised against alcohol use I will continue with daily cessation education and p.r.n. medication. 5. Tobacco abuse. This patient has been advised also against tobacco use. I will continue with daily cessation education. 6. Nutritional status. Continue with his diet. 7. Protein calorie malnutrition. Continue with his diet. The lozenge maker helper has recommended to use Ensure with meals on his diet. cc: Jerman Villatoro MD
--- NOTE | 2018-10-05 12:26 | GENERAL SURGERY PROGRESS NOTE ---
DATE: 10/05/2018 SUBJECTIVE: Mr. Yuan is tolerating food. His stoma is functional. His path remains pending. He is afebrile with satisfactory hemodynamics. I discussed whether he would want to go to rehab, but he does not want to do that. He lives with his mother. She said she can care for him at home. I would suggest we try to get him out of the hospital by this weekend. cc: Evairsto Hare MD
[2018-10-05] MEDS: LOVENOX SUBQ SCH (22:03)
[2018-10-05] MEDS: POTASSIUM CHLORIDE 20 MEQ, MAGNESIUM SULFATE 2 GM, THIAMINE 100 MG, FOLIC ACID 1 MG, M.... IV SCH ×6 (22:04)
[2018-10-06] MEDS: PRILOSEC PO SCH ×2 (05:50→06:23)
[2018-10-06 07:16] LABS: BASO# 0.02 X1000 (0.0-0.2); BASO% 0.2 % (0.0-0.8); EOS# 0.04 X1000 (0.0-0.7); EOS% 0.3 % (0.0-10.0); HEMATOCRIT 31.1 % (42.0-52.0); HEMOGLOBIN 9.8 g/dL (14.0-18.0); IMM GRAN# 0.12 X1000 (0.0-0.04); LYMPH# 1.14 X1000 (1.2-3.4); LYMPH% 9.4 % (20.5-51.1); MCH 23.2 PG (27-31); MCHC 31.5 g/dL (33-37); MCV 73.5 FL (81-99); MONO# 1.01 X1000 (0.11-0.59); MONO% 8.3 % (1.7-9.3); MPV 9.3 FL (7.4-10.4); NEUT# 9.78 X1000 (1.4-6.5); NEUT% 80.8 % (42.2-75.2); PLT 174 X1000 (130-400); RBC 4.23 XMIL (4.7-6.1); RDW 24.9 % (11.5-14.5); WBC 12.11 X1000 (4.8-10.8)
[2018-10-06 07:43] LABS: AGAP 12; BUN 10 mg/dL (8-22); CHLORIDE 96 mmol/L (98-107); COSMO 255; CREATININE 0.4 mg/dL (0.7-1.2); ESTIMATED GFR > 60; GLUCOSE 111 mg/dL (70-104); POTASSIUM 3.6 mmol/L (3.5-5.1); SODIUM 127 mmol/L (136-145); TCO2 19 mmol/L (25-35)
[2018-10-06] MEDS: VITAMIN B-1 PO SCH (09:32)
[2018-10-06] MEDS: PERIDEX MT SCH ×2 (09:32→19:59)
--- NOTE | 2018-10-06 11:06 | PROGRESS NOTE ---
DATE: 10/06/2018 SUBJECTIVE: As per the patient, he is feeling better. He is not asking for too much pain medication. He has been walking. Surgery on board. No acute events overnight. OBJECTIVE: Vital Signs: Temperature 97.9 degrees, pulse 94, respiratory rate 16, blood pressure 128/68, oxygen saturation 96 on room air. HEENT: Head normocephalic, no trauma. PERRLA. Neck: Supple. No JVD. No masses. Central trachea. Chest: Clear to auscultation. No wheezing. No rales. Abdomen: Soft. Tenderness to palpation at the level of the wound area and left side of the abdomen. The wound with loan, that is clean, dry and intact. Colostomy looks fine. Extremities: No edema, no clubbing, no cyanosis. Neurological exam: The patient is alert and oriented x3. No focal deficits. LABORATORY: WBC 12.1, hemoglobin 9.8, hematocrit 31.1, platelets 174. Sodium 127, potassium 3.6, chloride 96, bicarbonate 19. BUN 10, creatinine 0.4, glucose 111, calcium 8. ASSESSMENT AND PLAN: 1. Status post resection of a portion of the descending colon at the splenic flexure with construction of end colostomy and Kala pouch, postoperative day #6. He seems to be doing better. He is tolerating oral. CT scan before surgery showed a stenotic lesion in the upper descending colon with no significant mass or paracolic inflammatory changes. There is a possibility of neoplastic stricture, though. Pathology report showed invasive adenocarcinoma, moderately differentiated, extending into pericolonic adipose tissue. Margins negative for carcinoma, lymph nodes negative for metastatic carcinoma 0/13, PT3/PN0. I will consult Oncology Department for evaluation. 2. Colon adenocarcinoma, new diagnosis. I have consulted Dr. Benavides for evaluation. 3. Acute blood loss anemia status post 2 packed red blood cells, stable. 4. Alcohol abuse. This patient has been highly advised against alcohol use and tobacco use. I will continue with daily cessation education. 5. Tobacco abuse. Continue with daily education. 6. Nutritional status. Continue with his diet. 7. Protein calorie malnutrition, continue with his diet. Autocad Designer on board. 8. Hyponatremia. Likely this is chronic, probably related to syndrome of inappropriate antidiuretic hormone and/or alcohol abuse. This is getting better. I have stopped all the fluid. He is tolerating oral. cc: Jerman Villatoro MD
[2018-10-06] MEDS: NORCO-7.5 PO PRN ×2 (11:20→19:59)
--- NOTE | 2018-10-06 15:14 | HEMO/ONC CONSULTATION ---
DATE: 10/06/2018 ADDENDUM: ASSESSMENT AND PLAN: 1. Adenocarcinoma of the colon. For review of pathology, it does not look like the patient will likely need adjuvant chemotherapy. We will have him follow up with us as an outpatient. We will review all of his records and discuss his treatment plan going forward. I did discuss with the patient that he does not need chemotherapy, but will need surveillance monitoring, and he verbalized understanding. 2. Hyponatremia. Continue management per Dr. Degroot. 3. Acute blood loss. The patient is status post 2 units of packed red blood cells. He does have some iron deficiency anemia. Replete as indicated. 4. Alcohol abuse. Aware. 5. Tobacco abuse. Smoking cessation has been encouraged. Thank you for consulting us on Mr. Yuan. Will continue to follow him and adjust treatment plan per his hospital course. Dictated by MARCO Yates for Lady Benavides MD cc: Lady Benavides MD
[2018-10-06] MEDS ORDERED: PNEUMOVAX 23 IM ONE (15:20)
--- NOTE | 2018-10-06 15:31 | HEMO/ONC CONSULTATION ---
DATE: 10/06/2018 This is MARCO Yates dictating for Lady Benavides MD. CONSULTATION REQUESTED BY: The Hospitalist Service. REASON FOR CONSULTATION: Colon adenocarcinoma, new diagnosis. HISTORY OF PRESENT ILLNESS: Mr. Yuan is a 58-year-old male who presented complaining of abdominal pain with nausea and vomiting. During his workup in the ER he was found to have a colonic mass, as well as a 5 pound weight loss in a week's time. He is admitted to the hospital for further evaluation and treatment. Scan did revealed him to have a stenotic lesion in the area of his descending colon and upper portion of his descending colon consistent with a likely malignancy. The patient is now status post resection with construction of an end colostomy and Kala pouch. Pathology did come back as invasive adenocarcinoma moderately differentiated extending into the pericolonic adipose tissue, which was negative for metastatic disease. We have been consulted for further recommendations in regards to his colon cancer. PAST MEDICAL HISTORY: No known past medical history. PAST SURGERY HISTORY: He had a skin cancer removed at the back of his neck, but no other major surgeries. He is now status post his colon resection with ostomy placement as per above. SOCIAL HISTORY: He smokes about a half a pack cigarettes per week; however, he has a rather extensive pack-year history of 40 years of smoking 1 pack per day. He also drinks about 4-5 beers per week. FAMILY HISTORY: Positive for prostate cancer in his father. His father is actually one of our patients. His sister of metastatic gastric cancer. PHYSICAL EXAMINATION: Vital Signs: Temperature 98.2 degrees, heart rate 95, respirations 16, blood pressure 131/67, O2 saturation 95% on room air. General: This is a male lying in his hospital bed. He is in no acute distress. His mother is at his bedside. HEENT: Head normocephalic and atraumatic. Eyes: Pupils are equal, round, and reactive. Ears, nose, throat, neck, mouth, oral mucosa is normal. Cardiovascular: S1 and S2 heard. No murmurs, gallops, or rubs appreciated. Respiratory: Chest is clear with normal respiratory effort. Gastrointestinal: Abdomen is soft. He does have bandaging in place from his previous surgery. Colostomy in place on the left side. Expected tenderness being postoperative but no excruciating pain, tenderness, rebound or guarding. Extremities: The patient has no edema. Neurologic: The patient is alert and oriented with no focal neurologic deficits. LABORATORIES AND STUDIES: White blood cell count is 12.11, hemoglobin 9.8, hematocrit 31.1, platelet count 174,000. Sodium 127, potassium 3.6, chloride 96, CO2 is 19, BUN 10, creatinine 0.4, glucose 111. CEA is 23. CT scan findings as per above. ASSESSMENT AND PLAN: 1. Adenocarcinoma of the colon. From review of the pathology report, the patient will likely not need any adjuvant chemotherapy. Dictated by MARCO Yates for Lady Benavides MD cc: Lady Benavides MD [facility]
--- NOTE | 2018-10-06 18:08 | GENERAL SURGERY PROGRESS NOTE ---
DATE: 10/06/2018 Mr. Yuan is tolerating solid food. His colostomy is working. His wound is fine. His pathology shows invasive adenocarcinoma. Lymph nodes are negative. I think it is fine for him to be discharged over the weekend, and I will have him come back and see me in the office in a week for staple removal. I think Dr. Benavides has already seen him in consultation. cc: Evaristo Hare MD
[2018-10-06] MEDS: LOVENOX SUBQ SCH (19:59)
[2018-10-07] MEDS: PRILOSEC PO SCH (06:15)
[2018-10-07] MEDS: NORCO-7.5 PO PRN (06:15)
[2018-10-07 07:08] LABS: AGAP 14; BUN 10 mg/dL (8-22); CALCIUM 8.1 mg/dL (8.8-10.2); CHLORIDE 96 mmol/L (98-107); COSMO 254; CREATININE 0.5 mg/dL (0.7-1.2); ESTIMATED GFR > 60; GLUCOSE 87 mg/dL (70-104); POTASSIUM 3.6 mmol/L (3.5-5.1); SODIUM 127 mmol/L (136-145); TCO2 17 mmol/L (25-35)
[2018-10-07 07:17] VITALS: BP 119/63
[2018-10-07] MEDS: PERIDEX MT SCH (08:28)
[2018-10-07] MEDS: VITAMIN B-1 PO SCH (08:28)
--- NOTE | 2018-10-07 13:58 | DISCHARGE SUMMARY ---
ADMISSION DATE: 09/30/2018 DISCHARGE DATE: 10/07/2018 ADMISSION DIAGNOSES: 1. Colonic obstruction. 2. Hyponatremia. 3. Microcytic anemia. 4. Nicotine dependence. DISCHARGE DIAGNOSES: 1. Adenocarcinoma of the colon status post partial colon resection with construction of end colostomy and Mandel's pouch. 2. Acute blood loss anemia on top of chronic anemia. 3. Alcohol dependence. 4. Nicotine dependence. 5. Protein calorie malnutrition. 6. Hyponatremia. CONSULTATIONS: Dr. Hare with General Surgery, Dr. Benavides with Heme/Onc. DIAGNOSTIC PROCEDURES AND FINDINGS: Abdomen and pelvis CT 09/30/2018, stenotic lesion in the upper descending colon. No significant mass effect or paracolic inflammatory changes are demonstrated. Possibility of neoplastic stricture cannot be excluded; however, mild ascites right lower lobe atelectasis. Chest x-ray 09/30/2018, esophagogastric junction. Surgical biopsy from colon resection, invasive adenocarcinoma moderately differentiated extending into the paracolic adipose tissue. Margins negative for carcinoma. Lymph nodes negative for metastatic carcinoma. SURGICAL PROCEDURE: Resection of portion of ascending colon at the splenic flexure with construction of end colostomy and Mandel's pouch by Dr. Evaristo Hare. HOSPITAL COURSE: Mr. Yuan is a 58-year-old male who came to the hospital with abdominal pain, anorexia, weight loss. When he came to the ER, he was noted to have a stenotic lesion in the descending colon which was consistent with likely malignancy. Dr. Hare was consulted and he performed a partial colectomy on 09/30 which did ultimately reveal adenocarcinoma. There was no metastasis to the surrounding lymph nodes. Surgery was without complication. We did consult Dr. Benavides with Heme/Onc and she felt there was no need for adjuvant chemotherapy; however, he will be following up. His NG tube was removed and he was tolerating p.o. diet well. Overall, his symptoms have improved and he is now stable for discharge home. DISCHARGE MEDICATIONS: 1. Omeprazole 40 mg daily. 2. Thiamine 100 mg daily. 3. Morton 7.5 as needed for pain every 6 hours, 10 pills, no refills. DISCHARGE DIET: GI soft diet. DISCHARGE ACTIVITY: No heavy lifting. No driving while taking pain medication. DISCHARGE LABS: Sodium 127, potassium 3.6, chloride 96, CO2 17, anion gap 14, BUN 10, creatinine 0.5, glucose 87, calcium 8.1. DISPOSITION AND OTHER DISCHARGE INSTRUCTIONS: The patient is discharged home to self care. He is to follow up with Dr. Benavides and Dr. Hare as directed. He is to continue all medications and return to the ER or call 911 for worsening complaints or concerns. All questions answered. Discharge time greater than 35 minutes. Dictated by NURIS Machado for Jerman Villatoro MD cc: NURIS Machado MD Heather Shah, MD Robert C. Walker, MD
--- NOTE | 2018-10-07 18:49 | DISCHARGE SUMMARY ---
ADMISSION DATE: 09/30/2018 DISCHARGE DATE: 10/07/2018 ADMITTING DIAGNOSIS: Colonic obstruction. DISCHARGE DIAGNOSIS: Adenocarcinoma of the colon. PRINCIPAL PROCEDURE: Colon resection with end colostomy per Dr. Hare on 09/30/2018. DISCHARGE DISABILITY: Full. DISCHARGE DISPOSITION: He will return to see Dr. Hare in 1 week in our outpatient offices. DISCHARGE DIET: Is regular. DISCHARGE MEDICATIONS: He is to return to his home medications. HOSPITAL COURSE: Mr. John Yuan is a 58-year-old white male who was admitted by our hospitalist through the emergency department with abdominal distention. A CT scan of the abdomen suggested a stenotic lesion in the upper descending colon. This was on 09/30/2018 and later that afternoon he underwent a colon resection with a diverting colostomy. The pathology suggests an invasive adenocarcinoma but lymph nodes were negative. We feel that his postoperative convalescence has been normal. He has been taught how to care for his colostomy which is viable. It is functional. His mother has also been taught. His midline incision seems to be healing well. He is tolerating a diet. He is able to ambulate in his room and it was felt safe to send him home under the care of his family with followup with Dr. Hare within a week. Certainly he knows to contact us with any increasing abdominal pain or fever. At discharge his heart rate was 90 to 92, blood pressure 119/63, O2 saturation 95%. He was afebrile on no antibiotics. His white blood cell count was 12 at discharge, hematocrit is 31%. Electrolytes were within normal limits with a BUN of 10 and creatinine of 0.5. cc: Sun Santacruz MD
== END 2018-10-07 11:48 | disposition home or self-care (01) | DRG 330 ==
LOC: P.ED 08:45 → 4N 13:22 → SUATTDRO 13:22 → 4N 13:35
PROVIDERS: ATTEND Internal Medicine
PROC: GE.COLS (2018-09-30 14:15)
CPT/HCPCS: 36430; 71010; 71045; 74177; 80048; 80053; 81001; 82150; 82378; 82570; 82607; 82728; 82746; 83540; 83550; 83690; 83735; 83930; 83935; 84300; 85025; 86850; 86900; 86901; 86920; 88309; 93005; 94640; 96374; 97162; 97530; 99285; A9270; C9113; J0131; J0330; J0610; J1170; J1650; J1756; J1956; J2270; J2370; J2405; J3411; J3475; J3480; J7030; J7040; J7050; P9016; P9047; Q9967; S0164